=== PATIENT | female | born 1965 | race Caucasian/White ===

== ENCOUNTER 2019-11-28 18:11 | Inpatient (IN) | payer SELFPAY ==
[~2019-11-28] VITALS: Ht 154.9 cm; Wt 92.9 kg
--- NOTE | 2019-11-28 20:00 | NUR ---
[facility] Received patient from [facility]. Patient on heparin Drip at 9 units/Kg/hr = 8.48 ml/hr. As per [place] Nurse last two PTT at 1205pm PTT:53.7, and 5:10pm PTT 53.8. Patient stable, good, and AOX3. Denies any chest pain. Daughter at bedside and call light within reach.
[2019-11-28 20:09] VITALS: BP 150/75
[2019-11-28] MEDS ORDERED: MORPHINE SULFATE 2 MG/ML 1ML SYG IVP PRN (22:00)
[2019-11-28] MEDS ORDERED: GLUCAGON 1MG KIT 1 MG ML IM PRN (22:00)
[2019-11-28] MEDS ORDERED: DEXTROSE 50%-WATER 50 ML DISP.SYRIN IV PRN (22:00)
[2019-11-28] MEDS ORDERED: ONDANSETRON HCL 4 MG/2 ML VIAL IV PRN (22:00)
[2019-11-28] MEDS ORDERED: SODIUM CHLORIDE 0.9% 1000ML 1,000 ML IV SCH (22:00)
[2019-11-28] MEDS ORDERED: HYDRALAZINE HCL 20 MG/ML VIAL IV PRN (22:15)
[2019-11-28] MEDS ORDERED: METF-446 PO (22:44)
[2019-11-28] MEDS ORDERED: LISI-613 PO (22:45)
[2019-11-28] MEDS ORDERED: GLIP10TA9 PO (22:45)
[2019-11-28] MEDS ORDERED: HEPARIN 25000 UNITS/250 ML D5W 250 ML IV SCH (23:15)
[2019-11-28 23:46] VITALS: BP 127/62
[2019-11-29] VITALS (13 sets, daily range): BP systolic 120–153; BP diastolic 62–82
[2019-11-29] MEDS ORDERED: HEPARIN 25000 UNITS/250 ML D5W 250 ML IV ONE (02:04)
[2019-11-29] MEDS ORDERED: SODIUM CHLORIDE 0.9% 1000ML 1,000 ML IV ONE (02:05)
[2019-11-29] MEDS: NITROGLYCERIN 1GM/1 INCH PACKET TD SCH ×2 (02:18→06:26)
[2019-11-29 03:52] LABS: HEMOGLOBIN A1C 8.9 % (4.0-6.0)
[2019-11-29 04:03] LABS: ALBUMIN 2.8 g/dL (3.5-5.0); BASOPHILS % (AUTO) 0.2 % (0.0-5.0); BILIRUBIN,TOTAL 0.2 mg/dL (0.2-1.0); CREATININE 1.3 mg/dL (0.5-1.5); EOSINOPHILS % (AUTO) 6.4 % (0.0-8.0); HEMATOCRIT 31.9 % (36-48); LYMPHOCYTES % (AUTO) 29.9 % (21.0-51.0); MEAN CORPUSCULAR HEMOGLOBIN 29.4 pg (27.0-33.0); MEAN CORPUSCULAR HGB CONC 31.7 g/dL (32.0-36.0); MEAN CORPUSCULAR VOLUME 92.7 fL (79-99); MONOCYTES % (AUTO) 7.7 % (3.0-13.0); NEUTROPHILS % (AUTO) 55.4 % (40.0-77.0); PLATELET COUNT (AUTO) 204 K/uL (130-400); POTASSIUM 4.7 mmol/L (3.5-5.1); RED BLOOD CELL COUNT(AUTO) 3.44 MIL/uL (4.00-5.50); RED CELL DISTRIBUTION WIDTH 12.6 % (11.0-15.5); TOTAL PROTEIN, SERUM 7.2 g/dL (6.0-8.3); WHITE BLOOD COUNT (AUTO) 5.6 K/uL (4.8-10.8)
[2019-11-29] MEDS: INSULIN HUMULIN R 100 UNIT/ML 3ML SQ SCH ×5 (06:00→23:04)
--- NOTE | 2019-11-29 06:00 | NUR ---
Discontinue Heparin Drip As per [employer] wolf Corey to DC heparin drip. Patient stable, alert, denies any chest pain, call light within reach and daughter at bedside.
--- NOTE | 2019-11-29 07:30 | NUR ---
ASSESSMENT ENCOUNTERED PT A&OX3, CALM COOPERATIVE AND DOES NOT APPEAR TO BE IN ANY DISTRESS NOR ANY NEURO DEFICITS PRESENT. PT DENIES PAIN, SOB, NAUSEA. PT IS AMBULATORY, GAIT STEADY AND STRONG WITH STAND BY ASSIST, PT IS NPO PENDING [facility] BY DR Yamil SAGE. CALL LIGHT WITHIN REACH, FAMILY AT BEDSIDE.
[2019-11-29 08:27] LABS: INR 1.01 (0.85-1.15); PROTHROMBIN TIME 10.6 SEC (9.6-11.6)
[2019-11-29] MEDS: FAMOTIDINE/PF 20 MG/2 ML VIAL IV SCH (09:00)
[2019-11-29] MEDS: ASPIRIN 81MG TAB.CHEW PO SCH (09:00)
[2019-11-29] MEDS ORDERED: NITROGLYCERIN 2 MG/VIAL VIAL IV ONE (10:34)
[2019-11-29] MEDS ORDERED: HEPARIN SODIUM 1000UNIT/ML 10ML VIAL ONE (10:34)
[2019-11-29] MEDS ORDERED: BIVALIRUDIN 250 MG/VIAL IV ONE (10:34)
[2019-11-29] MEDS ORDERED: LIDOCAINE HCL 2% 20ML ONE (10:35)
[2019-11-29] MEDS ORDERED: IOHEXOL 350 MG/ML 100ML INFUS..BTL IV ONE (10:35)
[2019-11-29] MEDS ORDERED: MIDAZOLAM HCL 1 MG/ML 2ML VIAL ONE (10:40)
[2019-11-29] MEDS ORDERED: LABETALOL HCL 5 MG/ML 20ML VIAL IV ONE (11:14)
[2019-11-29] MEDS ORDERED: SODIUM CHLORIDE 0.9% 1000ML 1,000 ML IV SCH (11:47)
--- NOTE | 2019-11-29 12:50 | NUR ---
POST PROCEDURE RECEIVED PT FROM [employer]NA[employer], IN FLAT POSITION, A&OX3, CALM COOPERATIVE AND DOES NOT APPEAR TO BE IN ANY DISTRESS NOR ANY NEURO DEFICITS PRESENT. RT GROIN SOFT NONTENDER WITH NO OOZING OR HEMATOMA PRESENT. DP/PT PULSES PALPABLE. PT ON 4 HOURS FLAT BEDREST UNTIL 1600. CALL LIGHT WITHIN REACH, FAMILY AT BEDSIDE.
--- NOTE | 2019-11-29 16:24 | NUR ---
DC PLAN VISITED WITH PATIENT. PATIENT LIVES WITH SPOUSE. INDEPENDENT ABLE TO PERFORM ADL'S. PATENT HAS NO SERVICES OR DME'S. FEELS SAFE TO RETURN HOME. Addendum: 11/29/19 at 1643 by ZAK MICHELE RN CM Amended: Links added.
--- NOTE | 2019-11-29 16:30 | NUR ---
BEDREST COMPLETE RT GROIN SOFT NONTENDER WITH NO OOZING OR HEMATOMA PRESENT. DP/PT PULSES PALPABLE, PT IS AMBULATORY, GAIT SLOW BUT STEADY WITH STAND BY ASSIST, PT DENIES PAIN, DIZZINESS OR LIGHTHEADEDNESS. CALL LIGHT WITHIN REACH, FAMILY AT BEDSIDE.
[2019-11-29] MEDS ORDERED: ACETAMINOPHEN 325 MG TAB PO PRN ×2 (17:15)
[2019-11-29] MEDS: DOCUSATE SODIUM 100 MG CAP PO SCH (20:47)
[2019-11-29] MEDS: RANOLAZINE 500 MG TAB.SR.12H PO SCH (20:47)
[2019-11-29] MEDS: METOPROLOL TARTRATE 25 MG TAB PO SCH (20:47)
[2019-11-29] MEDS ORDERED: ATORVASTATIN CALCIUM 20 MG TABLET PO SCH (21:00)
[2019-11-29] MEDS: LORATADINE/PSEUDOEPHED 5/120 MG 1 EACH TAB.SR.12H PO SCH (22:29)
[2019-11-30 03:43] VITALS: BP 150/75
[2019-11-30 04:09] LABS: HEMATOCRIT 29.7 % (36-48); MEAN CORPUSCULAR HEMOGLOBIN 29.6 pg (27.0-33.0); MEAN CORPUSCULAR VOLUME 92.5 fL (79-99); PLATELET COUNT (AUTO) 206 K/uL (130-400); RED BLOOD CELL COUNT(AUTO) 3.21 MIL/uL (4.00-5.50); RED CELL DISTRIBUTION WIDTH 12.6 % (11.0-15.5); WHITE BLOOD COUNT (AUTO) 5.8 K/uL (4.8-10.8)
[2019-11-30 04:34] LABS: B-TYPE NATRIURETIC PEPTIDE 103 pg/mL (0-100)
[2019-11-30 04:46] LABS: CREATININE 1.1 mg/dL (0.5-1.5); PHOSPHORUS 3.5 mg/dL (2.5-4.9); POTASSIUM 4.3 mmol/L (3.5-5.1)
[2019-11-30] MEDS: INSULIN HUMULIN R 100 UNIT/ML 3ML SQ SCH ×2 (06:13→11:09)
[2019-11-30 07:00] VITALS: BP 162/78
--- NOTE | 2019-11-30 07:30 | NUR ---
ASSESSMENT ENCOUNTERED PT A&OX3 CALM COOPERATIVE AND DOES NOT APPEAR TO BE IN ANY DISTRESS NOR ANY NEURO DEFICITS PRESENT. PT DENIES PAIN, SOB, NAUSEA. RT GROIN SOFT NONTENDER WITH NO OOZING OR HEMATOMA PRESENT. DT/PT PULSES PALPABLE. PT IS AMBULATORY, GAIT STEADY AND STRONG WITH STAND BY ASSIST. CALL LIGHT WITHIN REACH, FAMILY AT BEDSIDE.
[2019-11-30] MEDS ORDERED: ASPI-555 PO (07:46)
[2019-11-30] MEDS ORDERED: ISOS60TA4 PO (07:46)
[2019-11-30] MEDS ORDERED: ATOR40TA69 PO (07:46)
[2019-11-30] MEDS ORDERED: CLOP75TA14 PO (07:46)
[2019-11-30] MEDS ORDERED: METO-391 PO (07:46)
[2019-11-30] MEDS ORDERED: RANO500T2 PO (07:46)
[2019-11-30] MEDS ORDERED: ATOR10 PO (08:07)
[2019-11-30] MEDS ORDERED: ISOSORBIDE MONO 30MG TAB SR PO SCH (09:00)
[2019-11-30] MEDS: DOCUSATE SODIUM 100 MG CAP PO SCH (09:11)
[2019-11-30] MEDS: ASPIRIN 81MG TAB.CHEW PO SCH (09:11)
[2019-11-30] MEDS: METOPROLOL TARTRATE 25 MG TAB PO SCH (09:11)
[2019-11-30] MEDS: LORATADINE/PSEUDOEPHED 5/120 MG 1 EACH TAB.SR.12H PO SCH (09:11)
[2019-11-30] MEDS: RANOLAZINE 500 MG TAB.SR.12H PO SCH (09:12)
[2019-11-30] MEDS: FAMOTIDINE/PF 20 MG/2 ML VIAL IV SCH (09:12)
[2019-11-30] MEDS ORDERED: LISINOPRIL 5 MG TABLET PO SCH (10:45)
[2019-11-30 11:38] VITALS: BP 143/75
--- NOTE | 2019-11-30 16:49 | NUR ---
DISCHARGE INSTRUCTIONS GIVEN, PIV REMOVED AND INTACT, DISCHARGED HOME TO FAMILY VEHICLE VIA WHEELCHAIR.
[2019-12-01] MEDS ORDERED: LISINOPRIL 5 MG TABLET PO SCH (09:00)
== END 2019-11-30 16:35 | disposition home or self-care (01) | DRG 282 ==
LOC: 2DH 19:38
PROVIDERS: ADMIT Internal Medicine; ATTEND Internal Medicine
PROC: 4A023N7 Measurement of Cardiac Sampling and Pressure, Left Heart, Percutaneous Approach (ICD-10-PCS; principal; 2019-11-29)
PROC: B2111ZZ Fluoroscopy of Multiple Coronary Arteries using Low Osmolar Contrast (ICD-10-PCS; 2019-11-29)
PROC: B2151ZZ Fluoroscopy of Left Heart using Low Osmolar Contrast (ICD-10-PCS; 2019-11-29)
PROC: B41F1ZZ Fluoroscopy of Right Lower Extremity Arteries using Low Osmolar Contrast (ICD-10-PCS; 2019-11-29)
DX: I21.4 Non-ST elevation (NSTEMI) myocardial infarction (principal); I10 Essential (primary) hypertension; Z68.38 Body mass index [BMI] 38.0-38.9, adult; E66.01 Morbid (severe) obesity due to excess calories; I25.110 Atherosclerotic heart disease of native coronary artery with unstable angina pectoris; E11.9 Type 2 diabetes mellitus without complications; E78.2 Mixed hyperlipidemia; I25.2 Old myocardial infarction; Z79.899 Other long term (current) drug therapy; Z95.1 Presence of aortocoronary bypass graft
CPT/HCPCS: 36415; 80048; 80053; 80061; 82948; 83036; 83880; 84100; 85025; 85027; 85610; 85730; 86308; 93005; 93458; 99156; 99157; C1760; C1894; G0378; J0583; J1644; J1815; J2250; J3490; J7030; Q9967